=== PATIENT | male | born 1970 ===

== ENCOUNTER 2017-06-23 21:57 | Emergency (ER) | payer BC ==
[2017-06-23 22:16] VITALS: PULSE 74; TEMP 97.8; O2SAT 100
--- NOTE | 2017-06-23 22:31 | C.PDOC ---
History Of Present Illness <Keyonna Tejada - Last Filed: 06/24/17 03:52> <Faina Kaplan - Last Filed: 06/24/17 19:13> 47 yo male w/PMHx of shoulder OA, come in for evaluation of left shoulder pain gradually developed since early today. Pt sts, pain is severe now, localized and worse with left arm lifting. Pt admits, similar sx in past to Right shoulder ' was told has calcification on my shoulder". Otherwise, pt denies known trauma or injury, fever, chills, headache, dizziness, neck pain, CP, SOB, dyspnea, diaphoresis, palpitation, denies weakness, sensory or vascular deficits to left arm. Ambulate to Ed for evaluation, appears in pain. (Keyonna Tejada) History Per: Patient <Keyonna Tejada - Last Filed: 06/24/17 03:52> <Faina Kaplan - Last Filed: 06/24/17 19:13> Time Seen by Provider: 06/23/17 22:07 Chief Complaint (Nursing): Upper Extremity Problem/Injury Past Medical History Reviewed: Historical Data, Nursing Documentation, Vital Signs - Medical History PMH: Arthritis Surgical History: No Surg Hx Family History: States: No Known Family Hx - Social History Hx Alcohol Use: Yes Hx Substance Use: No - Immunization History Hx Tetanus Toxoid Vaccination: No Hx Influenza Vaccination: No Hx Pneumococcal Vaccination: No <Keyonna Tejada - Last Filed: 06/24/17 03:52> Vital Signs: Last Vital Signs Temp 97.8 F 06/24/17 00:33 Pulse 74 06/24/17 00:33 Resp 18 06/24/17 00:33 BP 132/85 06/24/17 00:33 Pulse Ox 100 06/24/17 03:52 Review Of Systems Except As Marked, All Systems Reviewed And Found Negative. Constitutional: Negative for: Fever, Chills Eyes: Negative for: Vision Change ENT: Negative for: Throat Pain, Throat Swelling Cardiovascular: Negative for: Chest Pain, Palpitations Respiratory: Negative for: Cough, Shortness of Breath, Hemoptysis, Pleuritic Pain, Sputum, Wheezing Gastrointestinal: Negative for: Nausea, Vomiting Musculoskeletal: Positive for: Shoulder Pain Skin: Negative for: Rash Neurological: Negative for: Weakness, Numbness, Altered Mental Status, Dizziness <Keyonna Tejada - Last Filed: 06/24/17 03:52> Physical Exam - Physical Exam Appears: Well, No Acute Distress Skin: Normal Color, Warm, Dry, No Rash Eye(s): bilateral: PERRL Nose: No Flaring, No Discharge Oral Mucosa: Moist, No Drooling Neck: No Midline Cervical Tenderness, No Paracervical Tenderness, No Step Off Deformity, Supple Cardiovascular: Rhythm Regular, No Murmur, No JVD, Other ((-) carotid bruits B/L ) Respiratory: No Decreased Breath Sounds, No Accessory Muscle Use, No Stridor, No Wheezing Gastrointestinal/Abdominal: Soft, No Tenderness, No Distention, No Guarding Extremity: Tenderness (superior aspect Left shoulder with moderate discomfort to abduction/extension. No neurovascular deficits), No Deformity, No Swelling Neurological/Psych: Oriented x3, Normal Speech, Normal Motor, Normal Sensation, Normal Reflexes <Keyonna Tejada Last Filed: 06/24/17 03:52> ED Course And Treatment ECG: Interpreted By Me, Viewed By Me ECG Rhythm: Sinus Rhythm Interpretation Of ECG: SR@74/min, NAD, no acute T wave or ST-T changes. O2 Sat by Pulse Oximetry: 100 - Other Rad Left shoulder X-Ray: Interpreted by Me, Viewed By Me Interpretation: scant intra-articular calcification, no acute fx or dislocation Progress Note: On re-evaluation, pt is afebrile, hemodynamicaly stable. Non- toxic. PulseOx 100% RA. ENT: No acute finidngs. neck: Supple, (-) JVD, (-) carotid bruits B/L. Lungs: CTA B/L, BS equal B/L. CVS: (+)S1S2, reg. RUE: exam c/w shoulder arthralgia, no deformity, no neurovascular deficits. EKG- normal study. Imaging review (+) calcification noted. no acute fx or dislocation. Sling, pain medictaion given. Pt advised and ref. to f/u with Ortho in 2-3 days for re-eavl. return to ED if any worsening or new changes. Pt is stable for discharges, at bedside. <Keyonna Tejada - Last Filed: 06/24/17 03:52> ECG: Interpreted By Me ECG Interpretation: Normal, No Acute Changes <Faina Kaplan - Last Filed: 06/24/17 19:13> Disposition Counseled Patient/Family Regarding: Studies Performed, Diagnosis, Need For Followup, Rx Given - Disposition Disposition Time: 23:10 <SandrayaelKeyonna - Last Filed: 06/24/17 03:52> <Faina Kaplan - Last Filed: 06/24/17 19:13> - Disposition Referrals: Kayden Ledbetter MD [Staff Provider] - Disposition: HOME/ ROUTINE Condition: STABLE Additional Instructions: Sling for 1 week Take medication as prescribed Follow up with PMD in 2-3 days for re-evaluation. return to Ed if any worsening or new changes. Prescriptions: Methocarbamol [Robaxin] 500 mg PO TID #14 tab Prednisone [Deltasone] 40 mg PO DAILY #6 tablet traMADol [Ultram] 50 mg PO TID #7 tab Instructions: Calcific Tendinitis (ED) Forms: [facility] (Kinyarwanda), Work Excuse - Clinical Impression Clinical Impression: Calcific tendonitis
[2017-06-23] MEDS ORDERED: Oxycodone/Acetaminophen 5/325 mg Tab PO STA (23:44)
[2017-06-23] MEDS ORDERED: Oxycodone/Acetaminophen 5/325 mg Tab ONE (23:54)
[2017-06-24 00:34] VITALS: BP 132/85; RESP 18
--- NOTE | 2017-06-24 13:23 | RAD ---
PROCEDURE: Radiographs of the Left Shoulder HISTORY: pain COMPARISON: No prior. FINDINGS: BONES: Normal. No fracture. JOINTS: Minor degenerative changes of the left acromioclavicular and glenohumeral joints. SOFT TISSUES: Normal. OTHER FINDINGS: None. IMPRESSION: No evidence of acute displaced fracture nor dislocation. Minor DJD.
== END 2017-06-24 00:40 | disposition home or self-care (01) ==
LOC: C.ER 21:57
DX: M75.32 Calcific tendinitis of left shoulder (principal)
CPT/HCPCS: 73030; 96374; 99283; J2930